=== PATIENT | female | born 1970 | race African-American/Black ===

== ENCOUNTER 2018-07-01 11:02 | Emergency (ER) | payer OTHER ==
[~2018-07-01] VITALS: Ht 165.1 cm; Wt 86.2 kg
[~2018-07-01 11:02] MED LIST: ALLEGRA-D 24 H1 EACH; AMBIEN 10 MG TA10 MG PO; APPEAREX2500 MCG PO; AZOR 5-40 MG T1 EACH PO; B COMPLEX WITH1 EACH; BIOTIN2500 MCG; BUTORPHANOLNS NASAL; BYSTOLIC 5 MG5 M1 PO; COLCHICINE 0.60.6 M1 PO; COLCHICINE 0.60.6 M2 PO; DEMEROL100 MG PO; DEMEROL50 MG PO; FISH OIL 1,0001 EAC5 PO; FOLIC ACID1 MG PO; GARLIC OIL1 EACH PO; HYDROXYCHLOROQ200 M1; HYDROXYCHLOROQ200 M1 PO; INDOCIN SR75 MG; INDOMETHACIN 2525 MG PO; INDOMETHACIN 5050 MG PO; LISINOPRIL40 MG PO; MEDROL DOSPAK21 TA1 PO; MEDROL DOSPAK21 TAB PO; MEDROLDOSEPACK PO; METFORMIN; METHOTREXATE 22.5 MG PO; MSM500 MG; MULTIVITAMINS1 EAC7; NITROGLYCERIN0.4 MG SL; NORVASC10 MG PO; PREDNISONE 20 M20 M1 PO; PREDNISONE 20 M20 MG PO; PREDNISONE PO; PREDNISONE50 MG PO; PROTONIX40 MG PO; VITAMIN D400 UNI1 PO
[2018-07-01 11:03] VITALS: BP 178/102
[2018-07-01] MEDS ORDERED: NEURONTIN300 MG PO (11:18)
[2018-07-01] MEDS ORDERED: DIPHENHIST50 MG PO (11:19)
[2018-07-01] MEDS ORDERED: COREG6.25 MG PO (11:19)
[2018-07-01] MEDS ORDERED: KINERET100 MG/0.6 SUBQ (11:20)
[2018-07-01] MEDS ORDERED: ONDANSETRON HCL4 M2 PO (11:39)
[2018-07-01] MEDS ORDERED: NAPROSYN500 MG PO (11:39)
[2018-07-01] MEDS ORDERED: PEPCID20 MG PO (11:39)
== END 2018-07-01 11:52 | disposition home or self-care (01) ==
LOC: ER 11:02
DX: G43.909 Migraine, unspecified, not intractable, without status migrainosus (principal); M32.9 Systemic lupus erythematosus, unspecified; Z88.5 Allergy status to narcotic agent; Z88.1 Allergy status to other antibiotic agents; Z88.4 Allergy status to anesthetic agent; Z88.8 Allergy status to other drugs, medicaments and biological substances; Z88.6 Allergy status to analgesic agent; Z88.0 Allergy status to penicillin; Z91.018 Allergy to other foods; Z88.2 Allergy status to sulfonamides; Z91.010 Allergy to peanuts